=== PATIENT | male | born 1955 | race Caucasian/White ===

== ENCOUNTER 2022-12-27 04:08 | Day surgery (SDC) | payer OTHER ==
[2022-12-23 09:51] VITALS: BMI 29.9
[2022-12-27] MEDS ORDERED: BUPIVACAINE HCL/PF 0.25% (2.5MG/ML) 10 ML VIAL ONE (11:15)
[2022-12-27] MEDS ORDERED: LIDOCAINE HCL 1%, 10 MG/ML (10ML VIAL) MDV ONE (11:15)
[2022-12-27] MEDS ORDERED: BUPIVACAINE HCL/PF 0.5% (5MG/ML) 10 ML VIAL ONE (11:16)
[2022-12-27] MEDS ORDERED: MIDAZOLAM HCL 2 MG/2 ML SINGLE DOSE VIAL ONE (11:46)
[2022-12-27] MEDS ORDERED: PROPOFOL 20 ML ONE (11:46)
[2022-12-27] MEDS ORDERED: ceFAZolin SODIUM 1 GM VIAL ONE (11:46)
[2022-12-27] MEDS ORDERED: ceFAZolin SODIUM 1 GM VIAL IVPB ONE (11:52)
[2022-12-27] MEDS ORDERED: LIDOCAINE HCL 1%, 10 MG/ML (20ML VIAL) INF ONE ×2 (12:02)
[2022-12-27] MEDS ORDERED: BUPIVACAINE HCL/PF 0.25% (2.5MG/ML) 10 ML VIAL IJ ONE ×2 (12:03)
[2022-12-27 12:44] VITALS: RESP 16
[2022-12-27 13:07] VITALS: BP 134/91; PULSE 65; TEMP 97.8
== END 2022-12-27 13:15 | disposition home or self-care (01) ==
LOC: EDSEX → JASU-SURG 04:08
PROVIDERS: ATTEND Plastic Surgery
PROC: 0LN70ZZ Release Right Hand Tendon, Open Approach (ICD-10-PCS; principal; 2022-12-27 13:30)
DX: M65.341 Trigger finger, right ring finger (principal)